=== PATIENT | female | born 1965 | race Caucasian/White ===

== ENCOUNTER → 2019-08-11 12:56 | Outpatient (CLI) | payer BC, SELFPAY ==
--- NOTE | 2019-08-11 13:02 | US_ITS ---
PROCEDURE: US EXTREMITY RT LIMITED CLINICAL INDICATION: MASS RT LOW LEG COMPARISON: No exams were available for comparison FINDINGS: At the area of clinical concern along the lateral right ankle there is a somewhat ill-defined mildly hypoechoic area which is similar to the subcutaneous fat suggesting perhaps a small irregular lipoma. There is no acoustic enhancement or shadowing and there are no fluid collections. IMPRESSION: Possible subcutaneous right lateral lipoma. If further evaluation is necessary to rule out soft tissue lesions consider MRI of the ankle with and without contrast if necessary. Dictated by: Reji Fernandez 08/11/2019 14:04 Electronically signed by Reji Fernandez in [place] 08/11/2019 14:04
== END ==
PROVIDERS: PCP Family Medicine; Visit Provider Physician Assistant
DX: R22.41 Localized swelling, mass and lump, right lower limb (principal)
CPT/HCPCS: 76882

== ENCOUNTER → 2019-08-19 13:25 | Outpatient (CLI) | payer BC, SELFPAY ==
--- NOTE | 2019-08-19 13:28 | MR_ITS ---
PROCEDURE: MR ANKLE RT WO/W CON CLINICAL INDICATION: MASS OF RIGHT LOWER LEG COMPARISON: No exams were available for comparison TECHNIQUE: Gadolinium enhancement.Routine multiplanar multi echo sequences are performed without and with gadolinium enhancement. FINDINGS: A marker is placed along the palpable abnormality along the anterior and lower aspect of the leg. This area is included in the images of the ankle. No abnormal soft tissue mass or no bony mass is evident deep to the placed marker. There is prominent adipose tissue at the placed marker suggesting lipomatosis involvement but no discrete mass. No enhancing lesion is evident. The tibiofibular, talofibular, and deltoid ligaments have an unremarkable appearance. The peroneal, flexor digit talus longus and flexor hallucis longus and posterior tibialis tendons have an unremarkable appearance as does the Achilles tendon. There is a small amount of fluid along the posterior aspect of the talocalcaneal joint with minimal osteoarthritic change of the posterior subtalar joint as well as the talonavicular joint. No fracture apparent. The talar dome has an unremarkable appearance. No bone bruises. A small amount fluid is present in the talocalcaneal joint IMPRESSION: 1. Palpable abnormality corresponds to prominent adipose tissue in the lower leg anteriorly. 2. The mild osteoarthritic changes of the posterior subtalar joint and the talonavicular joint with a small amount fluid at these joint spaces Dictated by: Alec Segura MD 08/20/2019 10:02 Electronically signed by Alec Segura MD in [place] 08/20/2019 10:02
== END ==
PROVIDERS: PCP Family Medicine; Visit Provider Physician Assistant
DX: R22.41 Localized swelling, mass and lump, right lower limb (principal)
CPT/HCPCS: 73723; A9576

== ENCOUNTER → 2020-04-24 09:29 | Outpatient (CLI) | payer BC, SELFPAY ==
--- NOTE | 2020-04-24 09:32 | FL_ITS ---
PROCEDURE: FL UPPER GI SMALL BOWEL CLINICAL INDICATION: EPIGASTRIC PAIN Epigastric pain, fullness after eating, nausea COMPARISON: No exams were available for comparison TECHNIQUE: FLUOROSCOPY TIME : 1 minutes and 50 seconds FINDINGS: Game Bird Farmer exam is unremarkable.There is no evidence of hiatal hernia. No ulcer or mass evident. No mucosal abnormalities apparent. There is normal peristalsis. The duodenal C-loop is nondisplaced. The small bowel has an unremarkable appearance. No obstructing lesions mucosal abnormalities or mass is evident. Terminal ileum has an unremarkable appearance. IMPRESSION: Unremarkable upper GI and small-bowel follow-through Dictated by: Alec Segura MD 04/24/2020 14:21 Electronically signed by Alec Segura MD in [place] 04/24/2020 14:21
== END ==
PROVIDERS: PCP Family Medicine; Visit Provider Physician Assistant
DX: R10.13 Epigastric pain (principal)
CPT/HCPCS: 74246; 74248

== ENCOUNTER → 2020-05-18 09:15 | Outpatient (CLI) | payer BC, SELFPAY ==
--- NOTE | 2020-05-18 | CA_ITS ---
APPROVED REPORT Exam: Exercise Treadmill Technologist: Esther Tim, Ht: 5 ft 4 in Wt: 290 lbs BSA: 2.29 m2 HR: 98 bpm BP: 128/100 mmHg Rhythm: SINUS RHYTHM Medical History Medical History: HTN Medications: Lisinopril,,,,, Synthroid,,,,, ZYRTEC,,,,, Cardiac Risk Factors: HTN Stress Test Details Test: Ariel HR Resting HR: 120 bpm Max Heart Rate (APMHR): 165 bpm Max HR Achieved: 246 bpm Target HR (85% APMHR): 140 bpm % of APMHR: 149 Recovery HR: 123 bpm BP Resting BP: 134.0/106.0 mmHg Max BP: 162.0/110.0 mmHg Recovery BP: 141.0/118.0 mmHg BP response to stress: HYPERTENSIVE ECG Clinical Exercise duration: 03:42 min Highest Stage Achieved: Exercise capacity: 4.6 METs Stress ECG Conclusion ARIEL PROTOCOL COMPLETED. EXERCISED 03:42. METS = 4.6. MAX HEART RATE 246 BPM. MAX BP 162/110. STOPPED DUE TO SHORTNESS OF BREATH AND CARDIAC DYSRHYTHMIA. HYPERTENSIVE BP RESPONSE. VENT,COUPLETS. 4 BEAT RUN OF V TACH. INTERMITTENT A-FIB WITH RVR VS. SVT. MITCH MOORE NOTIFIED. MAX HEART RATE 246 BPM WHICH IS 149% OF PM FOR AGE. MAX BP 162/110. METS = 4.6. STOPPED DUE TO SOA AND CARDIAC DYSRHYTHMIA. OCCASIONAL PVC. 2 EPISODES OF V. COUPLETS. INTERMITTANT A-FIB WITH RVR. 4 BEAT RUN OF V TACH. GXT ONLY. NO CHEST PAIN. POOR EXERCISE CAPACITY. HYPERTENSIVE BP RESPONSE. V. COUPLET.4 BEAT RUN OF VT. AFIB WITH RVR VS. SVT. 1.[address] depression noted in lead V5 during SVT suspicious for ischemia . l Test Summary RECOVERY 06:00 0.0 0.0 103 . 150/ 92 . . REST . . . . . . . Standing REST 03:32 0.0 0.0 120 . 134/106 . . Stage 1 01:00 10.0 1.7 135 . . . . Stage 1 02:00 10.0 1.7 149 . . . . Stage 1 03:00 10.0 1.7 160 . 162/110 . . Stage 2 00:42 12.0 2.5 170 . . . Stop exercise at 03:42 RECOVERY 01:00 0.0 0.0 160 . . . . RECOVERY 02:00 0.0 0.0 136 . . . . RECOVERY 03:00 0.0 0.0 120 . . . . RECOVERY 04:00 0.0 0.0 111 . 141/118 . . RECOVERY 05:00 0.0 0.0 106 . 152/102 . . RECOVERY 06:00 0.0 0.0 103 . 150/ 92 . . RECOVERY 06:17 0.0 0.0 106 . 150/ 92 . . Electronically signed by : Nicho Ordonez, 05/18/2020 16:29:16
--- NOTE | 2020-05-18 09:29 | CA_ITS ---
APPROVED REPORT EXAM: Comprehensive 2D, Doppler, and color-flow Echocardiogram Chicken Sexer: Corine Camp CRT Ht: 5 ft 4 in Wt: 290lbs BSA: 2.29 BP: 134/100 mmHg Indications: Chest Pain, Murmur, Obesity, Palpitations, Fatigue, Hypertension/HDD 2D Dimensions LVOT 1.81 cm (M/F) 1.5-2.5 M-Mode Dimensions RVDd 2.50 cm (0.9-2.6) LVDd 4.35 cm (3.5-5.7) LVDs 2.86 cm (3.5-5.7) IVSd 1.32 cm (0.6-1.1) PWd 0.78 cm (0.6-1.1) EF (Teich) 63.60% FS 34.30% EDV (Teich) 85.40 mL ESV (Teich) 31.10 mL LV Diastology E/A Ratio 0.82 Mitral Valve MV A Velocity 92.00 (40-130 cm/s) Left Ventricle Left atrium is normal size, left ventricle is normal size, there is no concentric left ventricular hypertrophy, visually estimated ejection fraction 55 to 60% with no regional wall motion abnormality. Grade 1 diastolic dysfunction seen without tissue Doppler evidence of raise left atrial pressure. Right Ventricle Right atrium and right ventricular normal size and contractility. Aortic Valve Aortic valve is grossly normal, there is no aortic stenosis or aortic insufficiency. Mitral Valve Mitral valve is grossly normal, there is mild mitral regurgitation. Tricuspid Valve Tricuspid valve is grossly normal, there is mild tricuspid regurgitation, calculated right ventricular systolic pressure is within normal range. Pulmonic Valve Pulmonic valve is poorly visualized. Great Vessels Aortic root is normal size. Pericardium No significant pericardial effusion noted. Conclusion 1. Normal left ventricular size, preserved left ventricular systolic function, visually estimated ejection fraction 55% with no regional wall motion abnormality, grade 1 diastolic dysfunction seen without tissue Doppler evidence of raise left atrial pressure. 2. Mild mitral and tricuspid regurgitation, calculated right ventricular systolic pressure within normal range. 3. No significant pericardial effusion noted. Electronically signed by : Lyndon Randall, 05/18/2020 10:43:53
== END ==
PROVIDERS: PCP Family Medicine; Visit Provider Physician Assistant
DX: R07.9 Chest pain, unspecified (principal); R00.2 Palpitations
CPT/HCPCS: 93017; 93225; 93226; 93306

== ENCOUNTER 2020-06-05 08:54 | Day surgery (SDC) | payer BC, SELFPAY ==
[2020-06-05] VITALS (11 sets, daily range): BP systolic 109–159; BP diastolic 62–96; PULSE 60–104; RESP 15–16; TEMP 36.7; O2SAT 97–99; BMI 50.3
--- NOTE | 2020-06-05 09:00 | IR_ITS ---
APPROVED REPORT Patient Location: Outpatient PROCEDURES Left heart catheterization Left ventriculogram Selective coronary angiogram INDICATION Angina pectoris, Abnormal Myoview Informed consent was obtained prior to the procedure. COMPLICATIONS None Estimated Blood Loss: less than 10 ml TECHNIQUE One percent lidocaine used to anesthetize the right anterior aspect of the wrist. The right radial artery was accessed via the Seldinger technique. A 6 Divehi sheath was placed in the right radial artery. 2.5 mg of verapamil, 800 mcg of nitroglycerin, 1mg Lidocaine and 5000 U Heparin were given through the arterial sheath. The trap catheter was also used to perform left heart catheterization, left ventriculogram and selective coronary angiogram. At the end of the procedure the sheath was removed good hemostasis was achieved using Traclet band, patient was transferred to the postop holding area in stable condition. ANGIOGRAPHIC RESULTS The left main artery Normal The left anterior descending artery Normal The circumflex artery Normal The right coronary artery Dominant normal The [place] ventriculogram reveals Hyperdynamic 70-75% The left ventricular end-diastolic pressure 20 to 25 mmHg IMPRESSION Normal coronary arteries Hyperdynamic ventricle consistent with diastolic dysfunction Elevated LVEDP consistent with diastolic dysfunction PLAN 1. Treatment of underlying diastolic dysfunction Electronically signed by : Remi De La Paz, 06/05/2020 12:39:55
[2020-06-05 09:44] LABS: Chloride 101 mmol/L (98-107)
[2020-06-05 09:45] LABS: Potassium 3.7 mmoL/L (3.5-5.1); Sodium 142 mmol/L (136-145)
[2020-06-05 09:47] LABS: Blood Urea Nitrogen 16 mg/dl (7-17); Creatinine Clearance Estimated 69 mL/min (50-200); Estimated Glomerular Filt Rate 74 ml/min (>60); GFR (African American) 90 ML/MIN (>60)
[2020-06-05 09:48] LABS: Anion Gap 14.7 mEq/L (5-15); Calcium 9.4 mg/dl (8.4-10.2); Carbon Dioxide 30 mmol/L (22.0-30.0); Glucose 113 mg/dl (74-100)
[2020-06-05 09:53] LABS: Basophils # 0.1 K/mm3 (0-0.2); Basophils % 1.3 % (0.1-2.0); Eosinophils # 0.2 K/mm3 (0.0-0.4); Eosinophils % 2.8 % (0.1-12.0); Hematocrit 36.1 % (37.0-47.0); Hemoglobin 12.4 g/dL (12.2-16.2); Lymphocytes # 2.5 K/mm3 (0.7-4.5); Mean Corpuscular HGB Conc 34.4 g/dL (31.8-35.4); Mean Corpuscular Hemoglobin 30.3 pg (27.0-31.2); Mean Platelet Volume 7.9 fl (7.4-10.4); Monocytes # 0.6 K/mm3 (0.1-1.0); Monocytes % 7.7 % (1.7-9.3); Neutrophils # 3.9 K/mm3 (1.8-7.8); Neutrophils % 54.2 % (37.0-80.0); Platelet Count 368 K/mm3 (142-424); Red Cell Distribution Width 13.1 % (11.5-17.5); White Blood Count 7.3 K/mm3 (4.8-10.8)
== END 2020-06-05 15:23 | disposition home or self-care (01) ==
PROVIDERS: PCP Physician Assistant; Visit Provider Internal Medicine
DX: I11.0 Hypertensive heart disease with heart failure; I50.30 Unspecified diastolic (congestive) heart failure; E03.9 Hypothyroidism, unspecified
CPT/HCPCS: 80048; 85025; 93458; 99152; C1725; C1760; C1769; G0399; J1644; Q9967

== ENCOUNTER → 2020-06-25 15:36 | Outpatient (CLI) | payer BC, SELFPAY ==
[2020-06-25 19:36] LABS: Coronavirus 19 IgG Antibody Positive (Negative); Coronavirus 19 IgM Antibody Positive (Negative)
== END ==
PROVIDERS: Visit Provider Physician Assistant
DX: Z20.828 Contact with and (suspected) exposure to other viral communicable diseases (principal); U07.1 COVID-19
CPT/HCPCS: 36415; 86328

== ENCOUNTER → 2020-06-26 10:34 | Outpatient (CLI) | payer BC, SELFPAY | PROVIDERS: PCP Physician Assistant; Visit Provider Physician Assistant | DX: Z01.84 Encounter for antibody response examination (principal) | CPT/HCPCS: U0003 ==

== ENCOUNTER → 2020-07-07 16:03 | Outpatient (CLI) | payer BC, SELFPAY ==
[2020-07-09 17:02] LABS: Covid-19 Nasal PCR Sendout UK Detected
== END ==
PROVIDERS: PCP Physician Assistant; Visit Provider Physician Assistant
DX: Z20.828 Contact with and (suspected) exposure to other viral communicable diseases (principal); U07.1 COVID-19
CPT/HCPCS: U0003

== ENCOUNTER → 2020-07-15 16:53 | Outpatient (CLI) | payer BC, SELFPAY ==
[2020-07-18 08:20] LABS: Covid-19 Nasal PCR Sendout Lex POSITIVE
== END ==
PROVIDERS: PCP Physician Assistant; Visit Provider Nurse Practitioner
DX: Z20.828 Contact with and (suspected) exposure to other viral communicable diseases (principal); U07.1 COVID-19
CPT/HCPCS: U0004

== ENCOUNTER → 2020-07-22 15:59 | Outpatient (CLI) | payer BC, SELFPAY ==
[2020-07-22 17:20] LABS: Creatine Kinase 33 U/L (30-135)
[2020-07-22 17:30] LABS: Coronavirus 19 IgG Antibody Positive (Negative); Coronavirus 19 IgM Antibody Negative (Negative)
[2020-07-22 17:48] LABS: Erythrocyte Sedimentation Rate 123 mm/hr (0-30)
[2020-07-25 03:30] LABS: Covid-19 Nasal PCR Sendout Lex NOT DETECTED
== END ==
PROVIDERS: PCP Physician Assistant; Visit Provider Physician Assistant
DX: U07.1 COVID-19 (principal); M62.81 Muscle weakness (generalized)
CPT/HCPCS: 36415; 82550; 85651; 86328; U0004

== ENCOUNTER → 2020-08-01 14:12 | Outpatient (CLI) | payer BC, SELFPAY ==
[2020-08-01 15:10] VITALS: PULSE 71; PULSE 75
--- NOTE | 2020-08-01 15:51 | MM_ITS ---
PROCEDURE: MM DIG SCREENING MAMM BI W/CAD Digital Breast Tomosynthesis Included CLINICAL INDICATION: SCREENING There is a history of breast cancer in the patient's aunt. COMPARISON: MG DIGMAMMS MAMMOGRAM SCREEN-JUNIOR DATA ANALYST N/C from 08/07/2006 MG DIGMAMMS MAMMOGRAM SCREEN-JUNIOR DATA ANALYST N/C from 03/15/2008 MG DMSB DIG MAMM-SCREEN AGUSTÍN from 05/26/2013 TECHNIQUE: Standard CC and MLO images and 3D Tomosynthesis was obtained. R2 CAD reviewed. FINDINGS: Mild to moderate diffuse fibroglandular densities are seen in both breasts. There is faint arterial calcification in each breast. There are couple of benign-appearing calcifications bilaterally. There is stable tiny benign-appearing nodular densities axillary tail left breast likely low-lying nodes. There has been some fatty replacement of the breast parenchyma since the most recent study 05/26/2013. there is no suspicious lesion and no suspicious microcalcifications. IMPRESSION: Mild to moderate breast density with no suspicious lesions seen BI-RAD Category: 2 Benign Finding(s) FOLLOW-UP: 1YR 1 Year Follow-up (A letter has been sent to the patient regarding results of the study.) Dictated by: Dr. Haroon White MD 08/09/2020 12:00 Dr. Haroon White MD in [place] 08/09/2020 12:00
== END ==
PROVIDERS: PCP Physician Assistant; Visit Provider Physician Assistant
DX: Z12.31 Encounter for screening mammogram for malignant neoplasm of breast (principal); R06.09 Other forms of dyspnea
CPT/HCPCS: 77063; 77067; 94060; 94640; 94726; 94729

== ENCOUNTER → 2020-08-07 16:47 | Outpatient (CLI) | payer BC, SELFPAY ==
--- NOTE | 2020-08-07 16:57 | XR_ITS ---
PROCEDURE: XR CHEST 2V CLINICAL HISTORY: shortness of breath, muscle weakness COMPARISON: No exams were available for comparison FINDINGS: The cardiomediastinal silhouette and pulmonary vascularity are within normal limits. There is calcified granuloma in the right lung base. The remaining lungs are clear. No acute bony abnormalities. IMPRESSION: No acute findings. Dictated by: Alec Segura MD 08/08/2020 05:57 Alec Segura MD in [place] 08/08/2020 05:57
--- NOTE | 2020-08-07 16:57 | XR_ITS ---
PROCEDURE: XR LUMBAR SPINE 6V W BENDING CLINICAL INDICATION: low back pain COMPARISON: No exams were available for comparison FINDINGS: Minimal lumbar curvature convex left. 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 There is multilevel degenerative disc disease in the lower thoracic spine and in the lumbar spine most severe at L4-5 with grade 1-2 spondylolisthesis of L4 on L5 of 12 mm.. There is 3 mm retrolisthesis of L2 on L3. Facet arthritic changes are present at L4-L5 and S1. IMPRESSION: Multilevel lower thoracic and lumbar lordosis with grade 1-2 spondylolisthesis L4 on L5. Please see above for detail Dictated by: Alec Segura MD 08/08/2020 15:25 Alec Segura MD in [place] 08/08/2020 15:25
--- NOTE | 2020-08-07 16:57 | XR_ITS ---
PROCEDURE: XR THORACIC SPINE 3V CLINICAL INDICATION: back pain COMPARISON: No exams were available for comparison FINDINGS: There is normal alignment. No acute fracture or dislocation is evident. There is mild thoracic curvature convex right. There is multilevel thoracic spondylosis with degenerative disc disease and endplate osteophytes. A small metallic density overlies the pedicle on the left at C7 and could be due to an artifact. Other findings:None. IMPRESSION: Thoracic spondylosis as detailed above. Dictated by: Alec Segura MD 08/08/2020 06:00 Alec Segura MD in [place] 08/08/2020 06:00
[2020-08-07 18:05] LABS: Erythrocyte Sedimentation Rate 66 mm/hr (0-30)
[2020-08-07 18:22] LABS: Calcium 10.3 mg/dl (8.4-10.2); Creatine Kinase 47 U/L (30-135)
[2020-08-07 18:32] LABS: Intact Parathyroid Hormone 3.6 pg/mL (7.5-53.5)
[2020-08-09 17:08] LABS: Anti-Jo-1 <0.2 AI (0.0-0.9)
[2020-08-10 04:28] LABS: Aldolase 3.4 U/L (3.3-10.3); Calcium, Ionized 5.3 mg/dL (4.5-5.6)
[2020-08-16 15:23] LABS: AChR Binding Abs 0.08 nmol/L (0.00-0.24); AChR Blocking Abs 19 % (0-25); AChR Modulating Ab <12 % (0-20); Anti-Striation (muscle) Abs Negative (Neg:<1:40)
== END ==
PROVIDERS: Nurse Practitioner Family; Visit Provider Specialist
DX: R70.0 Elevated erythrocyte sedimentation rate (principal); Z85.850 Personal history of malignant neoplasm of thyroid; M62.81 Muscle weakness (generalized); R06.02 Shortness of breath; M54.9 Dorsalgia, unspecified; G89.29 Other chronic pain
CPT/HCPCS: 36415; 71046; 72072; 72114; 82085; 82310; 82330; 82550; 83970; 84238; 85651; 86235; 86255

== ENCOUNTER → 2020-08-20 11:29 | Outpatient (CLI) | payer BC, SELFPAY ==
[2020-08-20 15:23] LABS: Coronavirus 19 IgG Antibody Positive (Negative)
[2020-08-20 15:24] LABS: Coronavirus 19 IgM Antibody Positive (Negative)
[2020-08-21 15:19] LABS: Antiparietal Cell Antibody 1.6 Units (0.0-20.0)
== END ==
PROVIDERS: Visit Provider Specialist
DX: Z01.84 Encounter for antibody response examination (principal); U07.1 COVID-19; E53.8 Deficiency of other specified B group vitamins
CPT/HCPCS: 36415; 83516; 86328; 86340

== ENCOUNTER → 2020-09-04 09:56 | Outpatient (CLI) | payer BC, SELFPAY ==
[2020-09-04 11:05] LABS: Erythrocyte Sedimentation Rate 127 mm/hr (0-30)
[2020-09-04 11:12] LABS: Calcium 9.7 mg/dl (8.4-10.2)
[2020-09-05 13:53] LABS: Calcium, Ionized 5.4 mg/dL (4.5-5.6)
[2020-09-05 15:59] LABS: Angiotensin Converting Enzyme <15 U/L (14-82)
== END ==
PROVIDERS: Specialist; PCP Family Medicine; Visit Provider Nurse Practitioner Family
DX: U07.1 COVID-19 (principal); R42 Dizziness and giddiness; M62.81 Muscle weakness (generalized); R70.0 Elevated erythrocyte sedimentation rate; E83.52 Hypercalcemia
CPT/HCPCS: 36415; 82164; 82310; 82330; 85651; 93225; 93226

== ENCOUNTER → 2020-09-18 14:50 | Outpatient (CLI) | payer BC, SELFPAY ==
[2020-09-18 15:43] LABS: Uric Acid 6.6 mg/dl (2.5-6.2)
[2020-09-18 16:00] LABS: Erythrocyte Sedimentation Rate 94 mm/hr (0-30)
[2020-09-20 16:00] LABS: Anti-Centromere B Antibodies <0.2 AI (0.0-0.9); Anti-Jo-1 <0.2 AI (0.0-0.9); Anti-Smith Antibody <0.2 AI (0.0-0.9); Antichromatin Antibodies <0.2 AI (0.0-0.9); Antiscleroderma-70 Antibodies <0.2 AI (0.0-0.9); RNP Antibodies <0.2 AI (0.0-0.9); Sjogren's Anti-SS-A <0.2 AI (0.0-0.9); Sjogren's Anti-SS-B <0.2 AI (0.0-0.9)
[2020-09-20 20:00] LABS: Anti-DNA (DS) Ab Qn <1 IU/mL (0-9); RA Latex Turbid. 12.6 IU/mL (0.0-13.9)
[2020-09-21 18:55] LABS: Antinuclear Antibodies, IFA Negative (.)
[2020-10-01 23:36] LABS: Prothrombin Time 10.6 sec (.)
[2020-10-01 23:37] LABS: Anti-Cardiolipin Antibody IgG <10 GPL (.); Anti-Cardiolipin Antibody IgM <10 MPL (.); Beta-2 Glycoprotein I Ab, IgA <10 SAU (.); Beta-2 Glycoprotein I Ab, IgG <10 SGU (.); Beta-2 Glycoprotein I Ab, IgM <10 SMU (.); Hexagonal Phase Phospholipid 1 sec (.); Thrombin Time 18.8 sec (.)
== END ==
PROVIDERS: Visit Provider Nurse Practitioner Family
DX: M25.50 Pain in unspecified joint (principal); M35.3 Polymyalgia rheumatica; R53.83 Other fatigue; R06.00 Dyspnea, unspecified
CPT/HCPCS: 36415; 84550; 85597; 85598; 85610; 85613; 85651; 85670; 85730; 86038; 86140; 86146; 86147; 86225; 86235; 86431

== ENCOUNTER → 2020-09-22 07:39 | Outpatient (CLI) | payer BC, SELFPAY ==
[2020-09-22 08:54] LABS: Basophils # 0.1 K/mm3 (0-0.2); Basophils % 0.4 % (0.1-2.0); Eosinophils # 0.1 K/mm3 (0.0-0.4); Eosinophils % 0.7 % (0.1-12.0); Hematocrit 35.3 % (37.0-47.0); Hemoglobin 11.4 g/dL (12.2-16.2); Lymphocytes # 5.9 K/mm3 (0.7-4.5); Lymphocytes % 36.2 % (10-50); Mean Corpuscular HGB Conc 32.3 g/dL (31.8-35.4); Mean Corpuscular Hemoglobin 29.7 pg (27.0-31.2); Mean Corpuscular Volume 91.8 fl (81-99); Mean Platelet Volume 8.1 fl (7.4-10.4); Monocytes % 6.2 % (1.7-9.3); Neutrophils # 9.2 K/mm3 (1.8-7.8); Neutrophils % 56.4 % (37.0-80.0); Platelet Count 372 K/mm3 (142-424); Red Blood Count 3.84 M/mm3 (4.20-5.40); Red Cell Distribution Width 14.4 % (11.5-17.5); White Blood Count 16.3 K/mm3 (4.8-10.8)
[2020-09-22 09:00] LABS: MANUAL DIFFERENTIAL MANUAL DIFFERENTIAL (MANUAL DIFF)
[2020-09-22 11:15] LABS: Lymphocytes % 40 % (10-50); Monocytes % 6 % (2-9); Neutrophils % 54 % (42-76); Platelet Estimate Normal; RBC Morphology Normal; Total Cells Counted 100
[2020-09-22 14:56] LABS: Coronavirus 19 IgG Antibody Positive (Negative)
[2020-09-22 14:57] LABS: Coronavirus 19 IgM Antibody Positive (Negative)
== END ==
PROVIDERS: Visit Provider Otolaryngology
DX: Z01.818 Encounter for other preprocedural examination (principal); I77.6 Arteritis, unspecified; R51.9 Headache, unspecified
CPT/HCPCS: 36415; 85007; 85025; 86328

== ENCOUNTER → 2020-09-26 09:12 | Outpatient (CLI) | payer BC, SELFPAY | PROVIDERS: PCP Family Medicine; Visit Provider Otolaryngology | DX: Z01.818 Encounter for other preprocedural examination (principal); R51.9 Headache, unspecified | CPT/HCPCS: U0003 ==

== ENCOUNTER 2020-09-27 08:09 | Day surgery (SDC) | payer BC, SELFPAY ==
[2020-09-21 15:16] VITALS: BMI 48.9
[2020-09-27] VITALS (10 sets, daily range): BP systolic 110–145; BP diastolic 61–95; PULSE 56–88; RESP 12–18; TEMP 36.2–36.4; O2SAT 91–99
--- NOTE | 2020-09-27 10:25 | P.PN_ITS ---
[facility] Anesthesia Checklist - Structural Data Admitted From: Home Planned Operative Procedure/s: temporal artery bx Consent for Planned Operative Procedure(s) Verified: Yes - Additional verifications Anesthesia Reactions: No Hx Blood Transfusions: No Blood Transfusion Reaction: No - Airway Assessment C-Spine Mobility Assessed: Yes TMJ Mobility Assessed: Yes Dentition: Good Dentition - Neurological Assessment Level of Consciousness: Awake, Alert, Appropriate - Anesthesia Plan Anesthesia Risk discussed: Yes Anesthesia Plan: Verified ASA Class: III Anesthesia Type: General [facility] History I have reviewed the patient's past medical history: Yes Medical History: Reports:: Arrhythmia, Atrial Fibrillation, Hypertension Denies:: Cancer, Diabetes Mellitus Type 1, Diabetes Mellitus Type 2, Internal Pacemaker, MRSA, Seizures *Have you ever received a pneumonia vaccine?: No *Have you received a flu vaccine this season?: No Other Medical History: Reports: Hypothyroidism, Thyroid Disease. Denies: Blood Transfusion Reaction Anesthesia experience/problems:: none Other Surgeries: Yes: No Previous Surgery, Cancer Surgery, Cardiac Catheterization, , Thyroidectomy. No: Pacemaker Amputation: No Fractures: No - *Social History Last grade of school completed: High school graduate Smoking Status: Never smoker Alcohol Intake: never Substance Use Type: denies use *Occupational Status:: employed Housing: house Household Members: spouse *Travel in the last 8 weeks: None Family Hx:: Cancer, Diabetes, Thyroid Disorder
--- NOTE | 2020-09-27 10:58 | HMH.OPNOTE ---
Date of procedure: 09/27/20 Pre-op Diagnosis:: 1. Temporal arteritis 2. Polymyalgia rheumatica 3. Morbid obesity Post-op Diagnosis:: same Procedure performed:: Right temporal artery biopsy Surgeon:: Jonh Ramos MD ART PSYCHOTHERAPIST OR THERAPIST:: Sarabjit Seay Anesthesia: GETA Estimated blood loss (mL): 5 Operative findings:: same Operative note:: With the patient under general anesthesia the right periauricular area and temporal area was prepped and draped. A incision was marked out over the temporal muscle and skin subcutaneous tissue and platysma were incised. The temporal artery was identified and a hemostat was placed on each end of it and the incision in the midportion was excised and submitted along with some temporal muscle. The artery was then ligated and subcutaneous bleeding was stopped with bipolar cautery. Blood loss for all the procedure was 5 cc. The patient had a very deep cavity given her morbid obesity in size and accordingly Surgicel snow was placed in the depths of the cavity after all the bleeding was stopped. A closure was facilitated with 4-0 nylon sutures and an excellent repair was obtained. A Dermabond dressing was applied and the patient was sent to recovery in good general condition. Condition: stable Disposition: PACU Complications:: none
--- NOTE | 2020-09-27 11:04 | HMH.ANESI ---
[facility] Anesthesia Record Part I Intake, IV Amount: 1,500 Estimated blood loss (mL): 0 Urine output (mL): 0 Blood Pressure: 130/80 SaO2: 95 Pulse Rate: 78 Respiratory Rate: 12 Temperature: 97.2 F Patient is:: Awake, Stable Stable to PACU at:: 11:00
--- NOTE | 2020-10-02 07:46 | HMH.ANESII ---
[facility] Anesthesia Record Part II Discharge Time: 11:30 Destination: [facility] PACU nurse assessment reviewed?: Yes Patient Condition:: Good Anesthesia Complications:: None Swallowing reflex intact?: Yes Cyanosis?: No Blood Pressure: 110/77 Pulse Rate: 66 Temperature: 97.4 F Mental Status: Alert & Oriented Pain level:: 0 Nausea and/or vomitting:: None Intake, IV Amount: 1,500
[2020-10-02 07:47] VITALS: BP 110/77; PULSE 66; TEMP 36.3
== END 2020-09-27 12:06 | disposition home or self-care (01) ==
LOC: OR 08:10
PROVIDERS: PCP Family Medicine; Visit Provider Otolaryngology
PROC: (CPT 37609; principal; 2020-09-27 09:30)
DX: M31.5 Giant cell arteritis with polymyalgia rheumatica (principal); E66.01 Morbid (severe) obesity due to excess calories; Z68.42 Body mass index [BMI] 45.0-49.9, adult; G44.89 Other headache syndrome; I10 Essential (primary) hypertension; I48.91 Unspecified atrial fibrillation; I49.9 Cardiac arrhythmia, unspecified; E89.0 Postprocedural hypothyroidism
CPT/HCPCS: 37609; 96374; J2405; J2710

== ENCOUNTER → 2020-10-10 15:06 | Outpatient (CLI) | payer BC, SELFPAY ==
[2020-10-10 16:24] LABS: Erythrocyte Sedimentation Rate 108 mm/hr (0-30)
[2020-10-10 16:31] LABS: C-Reactive Protein 4.8 mg/L (0-4)
== END ==
PROVIDERS: Visit Provider Nurse Practitioner Family
DX: R79.82 Elevated C-reactive protein (CRP) (principal); I48.0 Paroxysmal atrial fibrillation; M25.50 Pain in unspecified joint; M35.3 Polymyalgia rheumatica; R06.00 Dyspnea, unspecified; R53.83 Other fatigue; R70.0 Elevated erythrocyte sedimentation rate
CPT/HCPCS: 36415; 85651; 86140

== ENCOUNTER 2020-11-23 13:00 | Outpatient (RCR) | payer BC, SELFPAY ==
--- NOTE | 2020-10-22 15:08 | HMH.PTOPEV ---
PT Outpatient Evaluation Rehab PT Outpatient Evaluation Start: 10/22/20 14:03 Freq: Status: Active Protocol: Document 10/22/20 14:57 INO (Rec: 10/22/20 15:08 PHORNE [id number]) Electronically Signed By Zhang Vasquez, PT 10/22/20 14:57 Outpatient Therapy Subjective History Subjective History Pt is 55 yowf who presents with c/o pain in low back x ~ 4 mos with insidious onset of symptoms. She states, They think I have PMR and that has been going on for a year or so and I don't know if it has anything to do with this back pain. She reports pain is presents with staniding for even shprt periods of time, but is relieved almost immediately with sitting. She has no c/o numbness or tingling in the legs. She also reports feeling stiff in her back when the pain increases. X-ray performed shows L2-3 retrolisthesis and L4-5 spondylolisthesis along with DDD. SHe has PMH of A-fib, HTN , and Morbid obesity. Chief Complaint Pain Symptom Type Ache,Other Symptoms Relieved By Rest/Positioning Symptoms Aggravated By Standing Prior Functional Limitations None Current Functional Limitations Housework,Standing,Recreation Activity Symptom Description Activity Dependent Level of pain today (0-10) 0 Pain scale - at its worst (0-10) 8 Lumbopelvic Eval Palapation tenderness bilateral paraspinal tenderness Yes Range of Motion Lumbar Spine Active Flexion Range of 0-65 Motion (degrees) Lumbar Spine Active Extension Range of 0-20 Motion (degrees) Left Lumbar Spine Lateral Flexion Active 0-20 Range of Motion (degrees) Right Lumbar Spine Lateral Flexion 0-20 Active Range of Motion (degrees) Manual Muscle Test Bilateral Knee Extension Strength Grade 5 Normal Knee Flexion Strength Grade 5 Normal Hip Flexion Strength Grade 5 Normal Hip Abduction Strength Grade 5 Normal Hip Adduction Strength Grade 5 Normal Hip Extension Strength Grade 5 Normal Ankle Dorsiflexion Strength Grade 5 Normal Gastronemius/Soleus Strength Grade 5 Normal DTR Rt Patellar 2+ Lt Patellar
== END 2020-11-23 13:05 | disposition home or self-care (01) ==
LOC: PT 13:00
PROVIDERS: PCP Family Medicine; Visit Provider Family Medicine
DX: M54.5 Low back pain (principal)
CPT/HCPCS: 97010; 97014; 97035; 97110; 97163; G0283

== ENCOUNTER → 2020-12-10 08:49 | Outpatient (CLI) | payer BC, SELFPAY ==
--- NOTE | 2020-12-10 09:11 | US_ITS ---
PROCEDURE: US ABDOMEN LIMITED CLINICAL INDICATION: ELEVATED RHEUMATOID FACTOR COMPARISON: No exams were available for comparison FINDINGS: PANCREAS: Unremarkable. No obvious mass or abnormal fluid collection. No ductal dilatation LIVER: No focal liver lesions demonstrated. Homogeneous echogenicity. No intrahepatic biliary ductal dilatation evident. There is appropriate direction of blood flow within a non dilated portal vein RIGHT KIDNEY: Unremarkable. Normal size and echogenicity. No hydronephrosis GALLBLADDER: No gallstones, gallbladder wall thickening, pericholecystic fluid, or biliary dilatation. The spleen is small IMPRESSION: Unremarkable limited abdominal ultrasound as detailed above Small spleen Dictated by: Alec Segura MD 12/10/2020 16:22 Alec Segura MD in [place] 12/10/2020 16:22
== END ==
PROVIDERS: PCP Family Medicine; Visit Provider Internal Medicine Rheumatology
DX: R10.12 Left upper quadrant pain (principal)
CPT/HCPCS: 76705

== ENCOUNTER → 2020-12-21 13:06 | Outpatient (CLI) | payer BC, SELFPAY ==
--- NOTE | 2020-12-21 13:16 | MR_ITS ---
PROCEDURE: MR LUMBAR SPINE WO CON CLINICAL INDICATION: LBP Low back pain COMPARISON: MR MR ANKLE RT WO/W CON from 08/19/2019 CR XR LUMBAR SPINE 6V W BENDING from 08/07/2020 TECHNIQUE: Standard multiplanar multiecho sequences are performed without contrast. 3-D MIP and myelographic images are also rendered and reviewed FINDINGS: The spinal cord ends at the L1-L2 level. T12-L1: Degenerative disc disease with minimal bulging disc slightly eccentric toward the right. L1-L2: Unremarkable. L2-L3: Mild facet hypertrophic change. L3-L4: Mild facet hypertrophic change L4-5: 7 mm anterolisthesis of L4. There is bulging disc eccentric toward the right with facet and ligamentum hypertrophy with moderate to severe right lateral recess and foraminal narrowing. There is mild left foraminal narrowing as well. L5-S1: Unremarkable. There is sacralization of L5. IMPRESSION: Mild multilevel lumbar spondylosis. Please see above for detailed description at each level. 7 mm anterolisthesis of L4 on L5. At L4-5, there is bulging disc eccentric toward the right with facet and ligamentum hypertrophy with moderate to severe right lateral recess and foraminal narrowing. There is mild left foraminal narrowing as well Dictated by: Alec Segura MD 12/21/2020 23:56 Alec Segura MD in [place] 12/21/2020 23:56
== END ==
PROVIDERS: PCP Family Medicine; Visit Provider Family Medicine
DX: M47.816 Spondylosis without myelopathy or radiculopathy, lumbar region (principal); M43.16 Spondylolisthesis, lumbar region; R29.898 Other symptoms and signs involving the musculoskeletal system
CPT/HCPCS: 72148; 76376

== ENCOUNTER → 2021-02-27 10:22 | Outpatient (CLI) | payer BC, SELFPAY ==
--- NOTE | 2021-02-27 10:29 | CT_ITS ---
PROCEDURE: CT CHEST WO CON CLINICAL INDICATION: DYSPNEA ON EXERTION COMPARISON: No exams were available for comparison TECHNIQUE: Axial images obtained with sagittal and coronal reformats. All CT scans at the facility use one or more dose reduction, viz: automated exposure control, ma/kV adjustment per patient size (including targeted exams where dose is matched to indication, i.e. head), or iterative reconstruction technique. FINDINGS: HEART AND MEDIASTINAL STRUCTURES: Unremarkable. LUNGS AND PLEURAL SPACES: Calcified granuloma is present in the right lower lobe. Five mm noncalcified nodules present in the right lung base medial to the granuloma. Calcified nodes are present in the right hilum and right middle lobe mild atelectatic or fibrotic changes are present in the lingula. No lobar consolidation or collapse. No suspicious nodules or central obstructing lesions. BONY STRUCTURES: Degenerative changes thoracic spine UPPER ABDOMEN: Unremarkable. ADDITIONAL FINDINGS: No other significant abnormalities. IMPRESSION: No acute finding. Old granulomatous disease. Small noncalcified nodular opacity right lung base at 5 mm and may be due to a noncalcified granuloma. Consider 6-12 month follow-up to confirm stability. Dictated by: Alec Segura MD 03/01/2021 09:05 Alec Segura MD in [place] 03/01/2021 09:05
== END ==
PROVIDERS: PCP Family Medicine; Visit Provider Family Medicine
DX: R06.09 Other forms of dyspnea (principal)
CPT/HCPCS: 71250

== ENCOUNTER 2024-01-26 10:49 | Outpatient (CLI) | payer BC, SELFPAY ==
[2024-01-26 11:32] LABS: Basophils # 0.1 K/mm3 (0-0.2); Eosinophils # 0.3 K/mm3 (0.0-0.4); Eosinophils % 2.4 % (0.1-12.0); Hematocrit 35.5 % (37.0-47.0); Hemoglobin 11.5 g/dL (12.2-16.2); Lymphocytes # 3.1 K/mm3 (0.7-4.5); Lymphocytes % 29.8 % (10-50); Mean Corpuscular HGB Conc 32.4 g/dL (31.8-35.4); Mean Corpuscular Hemoglobin 29.7 pg (27.0-31.2); Mean Corpuscular Volume 91.5 fl (81-99); Mean Platelet Volume 8.7 fl (7.4-10.4); Monocytes # 0.7 K/mm3 (0.1-1.0); Monocytes % 6.5 % (1.7-9.3); Neutrophils # 6.3 K/mm3 (1.8-7.8); Neutrophils % 60.2 % (37.0-80.0); Platelet Count 355 K/mm3 (142-424); Red Blood Count 3.88 M/mm3 (4.20-5.40); Red Cell Distribution Width 13.5 % (11.5-17.5); White Blood Count 10.4 K/mm3 (4.8-10.8)
[2024-01-26 11:56] LABS: Albumin Level 3.9 g/dl (3.5-5.0); Alkaline Phosphatase 106 U/L (38-126); Anion Gap 9.6 mEq/L (5-15); Bilirubin,Indirect 0.7 mg/dL (0.0-0.9); Bilirubin,Total 0.7 mg/dl (0.2-1.3); Bilirubin,Unconjugated 0.7 mg/dL (0.0-1.1); Blood Urea Nitrogen 18 mg/dl (7-17); Calcium 7.7 mg/dl (8.4-10.2); Carbon Dioxide 29 mmol/L (22.0-30.0); Chloride 107 mmol/L (98-107); Chol/HDL Ratio 5.3 (1-3.5); Cholesterol 218 mg/dl (140-200); Estimated Glomerular Filt Rate 46 ml/min (>60); GFR (African American) 56 ML/MIN (>60); Glucose 111 mg/dl (74-100); HDL Cholesterol 41 mg/dl (40-60); Magnesium 1.8 mg/dl (1.6-2.3); Potassium 4.6 mmoL/L (3.5-5.1); Sodium 141 mmol/L (136-145); Triglycerides 83 mg/dl (30-150); VLDL Cholesterol 17 mg/dL (0-40)
[2024-01-26 11:57] LABS: Alanine Aminotransferase 16 U/L (12-78); Aspartate Amino Transferase 21 U/L (14-36)
[2024-01-26 12:07] LABS: Direct LDL Cholesterol 127.54 mg/dL (100-129)
[2024-01-26 12:13] LABS: Free T4 (Free Thyroxine) 2.25 ng/dl (0.78-2.19)
[2024-01-26 12:26] LABS: Thyroid Stimulating Hormone < 0.02 uIU/mL (0.465-4.68)
== END 2024-01-26 23:59 | disposition home or self-care (01) ==
LOC: LAB 10:50
PROVIDERS: PCP Family Medicine; Visit Provider Nurse Practitioner Family
DX: R94.31 Abnormal electrocardiogram [ECG] [EKG] (principal); I48.0 Paroxysmal atrial fibrillation; R06.00 Dyspnea, unspecified; I49.1 Atrial premature depolarization; I47.20 Ventricular tachycardia, unspecified
CPT/HCPCS: 36415; 80048; 80061; 80076; 83735; 84439; 84443; 85025

== ENCOUNTER 2024-02-08 07:44 | Outpatient (CLI) | payer BC, SELFPAY ==
--- NOTE | 2024-02-08 07:49 | CA_ITS ---
APPROVED REPORT EXAM: Comprehensive 2D, Doppler, and color-flow Echocardiogram Engraver Pantograph: Angela Beyer RVT Ht: 5 ft 4 in Wt: 232lbs BSA: 2.08 BP: 136/62 mmHg Indications: A-FIB,ABN EKG,FATIGUE,SOA,OBESITY TDS-PT BODY HABITUS LIMITED WINDOWS M-Mode Dimensions RVDd 2.97 cm (0.9-2.6) LA Diam 4.62 cm (1.9-4.0) LVDd 5.22 cm (3.5-5.7) LVDs 3.27 cm (3.5-5.7) IVSd 0.72 cm (0.6-1.1) PWd 0.64 cm (0.6-1.1) EF (Teich) 66.90% FS 37.40% EDV (Teich) 130.70 mL TAPSE 2.38 (<1.7) ESV (Teich) 43.20 mL LV Diastology E Decel Time 307 (160-240 msec) E/A Ratio 1.0 Aortic Valve IDA Index 1.05 cm2/m2 AoV Peak Jamie. 144.0 (50-130 cm/s) AO Peak GR. 8.30 mmHg AO Mean GR. 4.30 (<5 mmHg) AO VTI 30.1 (18-25 cm) IDA (VTI) 2.23 (2.5-4.5 cm2) Mitral Valve MV E Max Jamie. 96.0 (40-130 cm/s) MV A Velocity 95.0 (40-130 cm/s) E/A Ratio 1.00 MV PHT 90.0 ms Pulmonary Valve PV Peak Velocity 92.0 (50-150 cm/s) Tricuspid Valve TR P. Velocity 184.00 cm/s RAP Estimate 10.00 mmHg RVSP 23.50 mmHg Left Ventricle The left ventricle is normal size. The left ventricular systolic function is normal. The left ventricular ejection fraction is within the normal range. There is normal left ventricular wall thickness. There is normal LV segmental wall motion. The left ventricular diastolic function is normal. LVEF is 55%. Right Ventricle Right ventricle is mildly dilated. Right ventricle is mildly hypokinetic. Atria The left atrium size is mildly dilated. The right atrium size is normal. There is no Doppler evidence of interatrial shunt. Aortic Valve The aortic valve is mildly thickened. There is no aortic valvular stenosis. No aortic regurgitation is present. Mitral Valve The mitral valve leaflets are mildly thickened. No evidence of mitral valve stenosis. Moderate mitral regurgitation. Tricuspid Valve The tricuspid valve leaflets are thin and pliable. Trace tricuspid regurgitation. There is insufficient TR jet to estimate RVSP. Pulmonic Valve The pulmonary valve is normal in structure. Trace pulmonic regurgitation. Great Vessels The aortic root is normal in size. The ascending aorta is normal in size. IVC is normal in size and collapses >50% with inspiration. Pericardium There is no pericardial effusion. Other Information Study Quality: Fair Conclusion Normal LV systolic function. Mildly dilated RV with mild reduction in RV function. Moderate MR. Electronically signed by : Anisha Ross MD 02/09/2024 10:02:23
== END 2024-02-08 23:59 | disposition home or self-care (01) ==
LOC: RT 07:45
PROVIDERS: PCP Family Medicine; Visit Provider Nurse Practitioner Family
DX: I48.0 Paroxysmal atrial fibrillation (principal); I49.1 Atrial premature depolarization; R06.00 Dyspnea, unspecified; R94.31 Abnormal electrocardiogram [ECG] [EKG]; I47.20 Ventricular tachycardia, unspecified
CPT/HCPCS: 93306